=== PATIENT | female | born 1980 | race Caucasian/White ===

== ENCOUNTER 2023-12-20 19:19 | Emergency (ER) | payer OTHER, SELFPAY ==
[2023-12-20 19:25] VITALS: BP 179/89; PULSE 89; RESP 20; TEMP 36.7; O2SAT 99; BMI 39.5
--- NOTE | 2023-12-20 19:55 | ED_ITS ---
HPI - Neck Pain/Injury General Chief Complaint: Neck Injury/Pain Stated Complaint: Upper L back/neck/arm pain Time Seen by Provider: 12/20/23 19:25 History of Present Illness HPI Narrative: This 43-year-old female comes in reporting neck pain that began yesterday morning and has worsened since then. She states that sometimes she feels pain radiating down her left arm toward her elbow. She does not report any injury event or strenuous activity to trigger this. She does states that she has aches and pains that are not clearly understood as to what is causing them. She has been told that she has symptoms of fibromyalgia. Related Data Home Medications ?Medication ?Instructions ?Recorded ?Confirmed albuterol sulfate 90 mcg/actuation 2 puff inhalation Q4H PRN dyspnea 12/20/23 12/20/23 aerosol inhaler hydralazine 10 mg tablet 10 mg PO 3XD 12/20/23 12/20/23 lisinopril 30 mg tablet 30 mg PO DAILY 12/20/23 12/20/23 Previous Rx's ?Medication ?Instructions ?Recorded methylprednisolone 4 mg tablets in See Rx Instructions PO .COMPLEX 12/20/23 a dose pack (Medrol (Abdi)) #21 ea Allergies Allergy/AdvReac Type Severity Reaction Status Date / Time No Known Drug Allergies Allergy Verified 12/20/23 19:27 Review of Systems Status of ROS: Reports: 10 or more systems reviewed and unremarkable except as noted in History and below Narrative: Constitutional: No fevers, no weight gain or loss. Eyes: No discharge. No vision changes. HENT: No congestion, no sore throat, no ear pain. Cardiovascular: No chest pain, no palpitations. Respiratory: No shortness of breath, no wheezes, no cough. Gastrointestinal: No abdominal pain, no vomiting, no diarrhea. Genitourinary: No dysuria, no hematuria. Musculoskeletal: Normal range of motion. Skin: No rashes, no pruritis. Neurological: No dizziness, weakness, sensory change, speech change. Endo/Heme/Allergies: No bruising or bleeding. No polydipsia. Pysch: no suicidality, no anxiety, no insomnia. All other systems reviewed and are negative. Exam Narrative: Exam Narrative: Constitutional: Well-developed, well-nourished, no acute distress. HEENT: Normocephalic, atraumatic. Neck: Normal range of motion. No midline tenderness. Supple. Pain seems to be present on the left side of the neck and radiating down toward her shoulder and sometimes toward her elbow. Heart: Regular. No murmurs. Normal rate. Intact distal pulses. Lungs: Clear to auscultation. No chest discomfort. No wheezes, rhonchi, or rales. Abdomen: Normal bowel sounds. Nontender. No rebound tenderness. Genitalia: Deferred. Back: No midline tenderness. Normal range of motion. Extremities: Normal range of motion. No injury. Skin: Intact. No rash. Warm. No erythema or pallor. Neurologic: No altered sensation. No weakness. Alert and oriented. Spurling's test is negative. Psychiatric: No suicidality. No anxiety or depression. No insomnia. Nursing notes and vitals signs are reviewed. Const: Vital Signs, click to edit/add: Vital Signs - 24 hr 12/20/23 19:25 Temperature 98.0 F Pulse Rate [Right Pulse Oximeter] 89 Respiratory Rate 20 Blood Pressure [Ri ght Upper Arm] 179/89 H Pulse Oximetry 99 Oxygen Delivery Me thod Room Air Course Vital Signs Vital signs: Initial Vital Signs Temperature 98.0 F 12/20/23 19:25 Temperature Source Temporal Artery Scan 12/20/23 19:25 Pulse Rate 89 12/20/23 19:25 Respiratory Rate 20 12/20/23 19:25 Blood Pressure 179/89 H 12/20/23 19:25 Blood Pressure Mean 119 H 12/20/23 19:25 Blood Pressure Position Sitting 12/20/23 19:25 Pulse Oximetry 99 12/20/23 19:25 Oxygen Delivery Method Room Air 12/20/23 19:25 Vital Signs Temperature 98.0 F 12/20/23 19:25 Pulse Rate 89 12/20/23 19:25 Respiratory Rate 20 12/20/23 19:25 Blood Pressure 179/89 H 12/20/23 19:25 Pulse Oximetry 99 12/20/23 19:25 Oxygen Delivery Method Room Air 12/20/23 19:25 Temperature 98.0 F 12/20/23 19:25 Pulse Rate 89 12/20/23 19:25 Respiratory Rate 20 12/20/23 19:25 Blood Pressure 179/89 H 12/20/23 19:25 Pulse Oximetry 99 12/20/23 19:25 Oxygen Delivery Method Room Air 12/20/23 19:25 MDM - Neck Pain/Injury MDM Narrative Medical decision making narrative: This patient comes in reporting neck pain as described above. She did not have a mechanism of injury that warrants imaging studies at this time. She does report some underlying poorly understood aches and pains that she has been seeing various doctors for. The patient received an oral dose of dexamethasone 10 mg and prescriptions are provided for Toradol and Flexeril from the [facility] machine. She also received a Medrol Dosepak prescription at her preferred pharmacy. She has plans to follow-up with a construction engineer and her primary physician. Discharge Plan Discharge Clinical Impression: Neck pain Patient Disposition: Home, Self-Care Condition: Unchanged Additional Instructions: Take medications as prescribed and indicated. Follow up with MD for ongoing management. Return if worsening. Prescriptions: New methylprednisolone [Medrol (Adbi)] 4 mg tablets,dose pack See Rx Instructions .ROUTE .COMPLEX Qty: 21 0RF Rx Instructions: orally per package directions No Action hydralazine 10 mg tablet 10 mg PO 3XD lisinopril 30 mg tablet 30 mg PO DAILY albuterol sulfate 90 mcg/actuation HFA aerosol inhaler 2 puff INHALATION Q4H PRN (Reason: dyspnea) Stand Alone Forms: [employer] Info Instructions
[2023-12-20] MEDS: dexAMETHasone 10 MG/ML inj PO (20:05)
== END 2023-12-20 20:19 | disposition home or self-care (01) ==
LOC: ED 20:19
PROVIDERS: Emergency Provider Emergency Medicine Emergency Medical Services
DX: M54.2 Cervicalgia (principal)
CPT/HCPCS: 99283; 99284; J1100